=== PATIENT | female | born 1960 | race Caucasian/White ===

== ENCOUNTER 2018-11-06 12:42 | Emergency (ER) | payer OTHER, SELFPAY ==
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
--- NOTE | 2018-11-06 15:28 | RAD ---
LUMBAR SPINE TWO TO THREE VIEW SERIES: INDICATIONS: Low back pain. Injury. FINDINGS: There is mild rightward convexity curvature of the lumbar spine. Mild to moderate multilevel degener ative change is present. No evidence of compression fracture or significant subluxation. There is m ultilevel facet osteoarthritis. A metallic clip is seen at the medial right upper abdomen. IMPRESSION: 1. Mild right convexity curvature of the lumbar spine and mild to moderate multilevel degenerative c hange. 2. No acute compression fracture or subluxation. POS: [facility]
== END 2018-11-06 14:45 | disposition home or self-care (01) ==
LOC: SCSER 12:42
DX: S39.012A Strain of muscle, fascia and tendon of lower back, initial encounter (principal); S43.402A Unspecified sprain of left shoulder joint, initial encounter; E11.40 Type 2 diabetes mellitus with diabetic neuropathy, unspecified; I10 Essential (primary) hypertension; E78.5 Hyperlipidemia, unspecified; V43.52XA Car driver injured in collision with other type car in traffic accident, initial encounter
CPT/HCPCS: 72100

== ENCOUNTER 2022-01-08 13:31 | Outpatient (CLI) | payer BC ==
[2022-01-08 15:08] LABS: #Eosinphils 0.4 10x3/uL (0.0-0.5); #Monocytes 0.7 10x3/uL (0.0-1.1); %Basophils 0.4 % (0.0-2.0); %Eosinophils 4.1 % (0.0-6.0); %Lymphocytes 23.8 % (18.0-47.0); %Monocytes 7.2 % (0.0-10.0); %Neutrophils 64.1 % (40.0-75.0); Hemoglobin 10.8 g/dL (12.0-15.5); Mean Corpuscular HGB CONC 30.9 g/dL (32.0-36.0); Mean Corpuscular Hemoglobin 25.8 pg (27.0-33.0); Mean Corpuscular Volume 83.7 fl (81.6-98.3); Mean Platelet Volume 10.4 fl (7.4-10.4); Platelet Count 338 10x3/uL (150-450); Red Blood Cell (RBC) Count 4.18 10x6/uL (3.90-5.03); White Blood Cell (WBC) Count 9.3 10x3/uL (3.5-10.5)
[2022-01-08 15:15] LABS: INR-International Normal Ratio 0.9
[2022-01-08 15:23] LABS: Anion Gap 15 mmol/L (10-20); BUN (Urea Nitrogen) 39 mg/dL (9.8-20.1); Calc. Creatinine Clearance 0 mL/min (70-130); Calcium 9.5 mg/dL (7.8-10.44); Carbon Dioxide 29 mmol/L (23-31); Chloride 100 mmol/L (98-107); Glucose 221 mg/dL (80-115); Potassium 4.2 mmol/L (3.5-5.1); Sodium 140 mmol/L (136-145)
[2022-01-09 00:19] LABS: SARS-CoV-2 PCR by NAA Not Detected (NotDetected)
== END 2022-01-08 13:32 | disposition home or self-care (01) ==
LOC: LABBT 13:31
PROVIDERS: ATTEND Orthopaedic Surgery
DX: Z01.818 Encounter for other preprocedural examination (principal); M17.11 Unilateral primary osteoarthritis, right knee; Z20.822 Contact with and (suspected) exposure to COVID-19
CPT/HCPCS: 80048; 85025; 85610; 87081; 93005; 93010; U0003; U0005

== ENCOUNTER 2022-01-13 05:34 | Inpatient (IN) | payer BC ==
[2022-01-08 12:37] VITALS: BMI 35.2
[2022-01-13] MEDS ORDERED: Dexmedetomidine 200 MCG/2 ML VIAL ONE ×2 (05:59→07:53)
[2022-01-13] MEDS ORDERED: Tranexamic Acid 1,000 MG/10 ML VIAL ONE (06:08)
[2022-01-13] MEDS ORDERED: Sodium Chloride 0.9% 100 ML ONE (06:08)
[2022-01-13] MEDS ORDERED: Vancomycin HCl 1.5 GM in Sodium Chloride 0.9% 250 ML 300 ML IVPB SCH (06:15)
[2022-01-13] MEDS ORDERED: Fentanyl 100 MCG/2 ML VIAL ONE (06:38)
[2022-01-13] MEDS ORDERED: Bupivacaine PF 0.5% 30 ML VIAL ONE ×3 (06:38→06:44)
[2022-01-13] MEDS ORDERED: Midazolam HCl 2 mg/2 ml Vial ONE (06:38)
[2022-01-13] MEDS ORDERED: PROPOFOL 200 MG/20 ML VIAL ONE (06:40)
[2022-01-13] MEDS ORDERED: Ondansetron PF 4 MG/2 ML Vial ONE (06:40)
[2022-01-13] MEDS ORDERED: Dexamethasone 20 MG/5 ML VIAL ONE (06:40)
[2022-01-13] MEDS ORDERED: Lidocaine 1% PF 5 ML VIAL ONE (06:40)
[2022-01-13] MEDS ORDERED: ceFAZolin (BATCH) 2 GM/100 ML BAG ONE (06:51)
[2022-01-13] MEDS ORDERED: Acetaminophen 325 MG TAB PO PRN (07:09)
[2022-01-13] MEDS ORDERED: Zolpidem Tartrate 5 MG TAB PO PRN ×2 (07:09→08:00)
[2022-01-13] MEDS ORDERED: Promethazine HCl 25 MG/ML VIAL IM PRN ×3 (07:09→08:53)
[2022-01-13] MEDS ORDERED: HYDROcodone/Acetaminophen 10/325 mg Tablet PO PRN ×4 (07:09→08:00)
[2022-01-13] MEDS ORDERED: Ondansetron PF 4 MG/2 ML Vial IVP PRN ×2 (07:09→08:00)
[2022-01-13] MEDS ORDERED: diphenhydrAMINE 25 MG CAP PO PRN (07:09)
[2022-01-13] MEDS: Sodium Chloride 0.9% 1,000 ML IV SCH ×2 (07:15→19:46)
[2022-01-13] MEDS ORDERED: Albuterol 200 PUFF (6.7GM INHALER) INH PRN (07:20)
[2022-01-13] MEDS ORDERED: Fentanyl 100 MCG/2 ML VIAL SLOW IVP PRN (07:51)
[2022-01-13] MEDS: metFORMIN 500 MG TAB PO SCH ×2 (08:00→18:18)
[2022-01-13] MEDS ORDERED: Ropivacaine 0.2% 550 ML 550 ML NERVE BLCK SCH (08:00)
[2022-01-13] MEDS ORDERED: traMADol HCl 50 MG TAB PO PRN ×2 (08:00)
[2022-01-13] MEDS ORDERED: Ondansetron HCl/PF 4 MG/2 ML Vial IVP PRN (08:53)
[2022-01-13] MEDS ORDERED: Promethazine HCl 25 MG/ML VIAL IVPB PRN (08:53)
[2022-01-13] MEDS ORDERED: Fentanyl 250 MCG/5 ML VIAL ONE (08:59)
[2022-01-13] MEDS ORDERED: Aspirin 81 mg Enteric Coated Tablet PO SCH (09:00)
[2022-01-13] MEDS ORDERED: Dextrose 5% in Water 1,000 ML IV PRN (13:12)
[2022-01-13] MEDS ORDERED: Dextrose 50% Abboject 50 ML SYRINGE SLOW IVP PRN (13:12)
[2022-01-13] MEDS ORDERED: HumaLOG 300 UNITS/3 ML VIAL SC PRN (13:12)
[2022-01-13] MEDS ORDERED: Ketorolac Tromethamine 30 MG/ML VIAL IM SCH (14:00)
[2022-01-13] MEDS: Ketorolac Tromethamine 30 MG/ML VIAL IVP SCH ×3 (15:07→23:46)
[2022-01-13] MEDS: ceFAZolin (BATCH) 2 GM in Premix Bag 1 BAG IVPB SCH ×2 (15:29→23:47)
[2022-01-13] MEDS: Hydrochlorothiazide 25 MG TAB PO SCH ×2 (15:32→20:41)
[2022-01-13] MEDS: Furosemide 20 MG TAB PO SCH (15:33)
[2022-01-13] MEDS: Aspirin 81 mg Enteric Coated Tablet PO SCH ×3 (15:33→21:13)
[2022-01-13] MEDS: Gabapentin 400 MG CAP PO SCH ×2 (15:34→20:42)
[2022-01-13] MEDS: Lisinopril 20 MG TAB PO SCH (15:34)
[2022-01-13] MEDS: HumaLOG 300 UNITS/3 ML VIAL SC PRN (18:19)
[2022-01-13] MEDS: Simvastatin 10 MG TAB PO SCH (20:42)
[2022-01-14] MEDS: Sodium Chloride 0.9% 1,000 ML IV SCH ×2 (02:40→21:18)
[2022-01-14] MEDS: HumaLOG 300 UNITS/3 ML VIAL SC PRN ×2 (05:54→18:02)
[2022-01-14] MEDS: Ketorolac Tromethamine 30 MG/ML VIAL IVP SCH ×4 (05:54→23:13)
[2022-01-14 07:09] LABS: Mean Corpuscular HGB CONC 32.5 g/dL (32.0-36.0); Mean Corpuscular Hemoglobin 27.7 pg (27.0-31.0); Mean Corpuscular Volume 85.3 fL (78.0-98.0); Mean Platelet Volume 7.2 fL (7.4-10.4); Platelet Count 268 thou/uL (130-400); RBC Distribution Width 12.8 % (11.5-14.5); Red Blood Cell (RBC) Count 3.59 mill/uL (4.20-5.40); White Blood Cell (WBC) Count 14.2 thou/uL (4.8-10.8)
[2022-01-14] MEDS: metFORMIN 500 MG TAB PO SCH ×2 (08:03→17:48)
[2022-01-14] MEDS: Furosemide 20 MG TAB PO SCH (08:03)
[2022-01-14] MEDS: Multivitamin W/ Minerals 1 TAB PO SCH (08:03)
[2022-01-14] MEDS: Aspirin 81 mg Enteric Coated Tablet PO SCH (08:03)
[2022-01-14] MEDS: Ferrous Gluconate 324 MG TAB PO SCH ×2 (08:04→17:48)
[2022-01-14] MEDS: Gabapentin 400 MG CAP PO SCH ×2 (08:04→21:13)
[2022-01-14] MEDS: Lisinopril 20 MG TAB PO SCH (08:05)
[2022-01-14] MEDS: Hydrochlorothiazide 25 MG TAB PO SCH ×2 (08:05→21:13)
[2022-01-14] MEDS: Senokot S 8.6-50 MG TAB PO SCH ×2 (09:31→21:13)
[2022-01-14 12:48] LABS: Hemoglobin A1c 8.9 % (4.0-6.0)
[2022-01-14] MEDS: Simvastatin 10 MG TAB PO SCH (21:14)
[2022-01-15] MEDS: Sodium Chloride 0.9% 1,000 ML IV SCH ×2 (04:56→10:51)
[2022-01-15 06:04] LABS: Hemoglobin 9.2 g/dL (12.0-16.0); Mean Corpuscular HGB CONC 32.1 g/dL (32.0-36.0); Mean Corpuscular Hemoglobin 27.1 pg (27.0-31.0); Mean Corpuscular Volume 84.3 fL (78.0-98.0); Mean Platelet Volume 7.5 fL (7.4-10.4); Platelet Count 231 thou/uL (130-400); RBC Distribution Width 13.1 % (11.5-14.5); White Blood Cell (WBC) Count 7.7 thou/uL (4.8-10.8)
[2022-01-15] MEDS: Ketorolac Tromethamine 30 MG/ML VIAL IVP SCH (06:04)
[2022-01-15 08:34] VITALS: BP 112/62; TEMP 98.3
[2022-01-15] MEDS: metFORMIN 500 MG TAB PO SCH (08:43)
[2022-01-15] MEDS: Gabapentin 400 MG CAP PO SCH (08:43)
[2022-01-15] MEDS: Multivitamin W/ Minerals 1 TAB PO SCH (08:44)
[2022-01-15] MEDS: Senokot S 8.6-50 MG TAB PO SCH (08:44)
[2022-01-15] MEDS: Aspirin 81 mg Enteric Coated Tablet PO SCH (08:44)
[2022-01-15] MEDS: Ferrous Gluconate 324 MG TAB PO SCH (08:44)
== END 2022-01-15 10:54 | disposition home or self-care (01) | DRG 470 ==
LOC: SDC 05:34 → SJJU 10:59 → OBSVTOIN 01-15 08:48
PROVIDERS: ADMIT Orthopaedic Surgery; ATTEND Orthopaedic Surgery
PROC: 0SRC0J9 Replacement of Right Knee Joint with Synthetic Substitute, Cemented, Open Approach (ICD-10-PCS; principal; 2022-01-13)
DX: M17.11 Unilateral primary osteoarthritis, right knee (principal); I10 Essential (primary) hypertension; E78.5 Hyperlipidemia, unspecified; E11.40 Type 2 diabetes mellitus with diabetic neuropathy, unspecified; K21.9 Gastro-esophageal reflux disease without esophagitis; J45.909 Unspecified asthma, uncomplicated; Z88.5 Allergy status to narcotic agent; Z88.2 Allergy status to sulfonamides; Z79.51 Long term (current) use of inhaled steroids; Z79.82 Long term (current) use of aspirin; Z79.899 Other long term (current) drug therapy; Z98.890 Other specified postprocedural states; Z90.710 Acquired absence of both cervix and uterus; Z90.49 Acquired absence of other specified parts of digestive tract
CPT/HCPCS: 36415; 36416; 83036; 85027; 96365; 96375; 96376; A4306; C1713; C1776; G0378; J0690; J1815; J1885; J2250; J2795; J3010; J3370; J3490; J7050; S0020

== ENCOUNTER 2022-11-17 22:30 | Emergency (ER) | payer BC ==
[~2022-11-17 22:30] MED LIST: Iopamidol-370 76% 500 ML 1 ML ONE
[2022-11-17] MEDS ORDERED: Acetaminophen 500 MG TAB ONE (23:29)
[2022-11-17] MEDS ORDERED: Lidocaine 5% Patch TD SCH (23:30)
[2022-11-17] MEDS ORDERED: Lidocaine 4% Patch TD SCH (23:30)
[2022-11-18] MEDS ORDERED: Fentanyl 100 MCG/2 ML VIAL ONE (00:27)
[2022-11-18 00:46] LABS: #Eosinphils 0.3 thou/uL (0.0-0.7); #Lymphocytes 3.5 thou/uL (1.20-3.40); #Monocytes 0.8 thou/uL (0.11-0.59); #Neutrophils 8.7 thou/uL (1.40-6.50); %Basophils 0.4 % (0.0-1.0); %Eosinophils 2.2 % (0.0-10.0); %Lymphocytes 25.9 % (21.0-51.0); %Monocytes 6.2 % (0.0-10.0); %Neutrophils 65.3 % (42.0-75.0); Hemoglobin 11.5 g/dL (12.0-16.0); Mean Corpuscular HGB CONC 32.8 g/dL (32.0-36.0); Mean Corpuscular Hemoglobin 27.3 pg (27.0-31.0); Mean Corpuscular Volume 83.2 fl (78.0-98.0); Platelet Count 277 10x3/uL (130-400); RBC Distribution Width 13.3 % (11.5-14.5); Red Blood Cell (RBC) Count 4.23 mill/uL (4.20-5.40); White Blood Cell (WBC) Count 13.3 10x3/uL (4.8-10.8)
[2022-11-18 01:10] LABS: ALT (SGPT) 14 U/L (8-55); AST (SGOT) 16 U/L (5-34); Albumin 4.4 g/dL (3.4-4.8); Alkaline Phosphatase 102 U/L (40-110); Anion Gap 20 mmol/L (10-20); BUN (Urea Nitrogen) 46 mg/dL (9.8-20.1); Bilirubin, Total 0.5 mg/dL (0.2-1.2); Calc. Creatinine Clearance 0 mL/min (70-130); Calcium 10.2 mg/dL (7.8-10.44); Carbon Dioxide 24 mmol/L (23-31); Chloride 102 mmol/L (98-107); Estimated GFR 24; Globulin 3.2 g/dL (2.4-3.5); Glucose 100 mg/dL (80-115); Potassium 4.7 mmol/L (3.5-5.1); Protein, Total 7.6 g/dL (5.8-8.1); Sodium 141 mmol/L (136-145)
== END 2022-11-18 04:10 | disposition home or self-care (01) ==
LOC: EDBD 22:30 → ERS 22:30
DX: R10.12 Left upper quadrant pain (principal); K59.00 Constipation, unspecified; I10 Essential (primary) hypertension; E11.40 Type 2 diabetes mellitus with diabetic neuropathy, unspecified; E78.00 Pure hypercholesterolemia, unspecified; W17.89XA Other fall from one level to another, initial encounter; Y92.481 Parking lot as the place of occurrence of the external cause; Z79.82 Long term (current) use of aspirin; Z79.84 Long term (current) use of oral hypoglycemic drugs; Z79.899 Other long term (current) drug therapy
CPT/HCPCS: 71275; 74177; 80053; 83690; 84484; 85025; 93005; 96374; J3010; Q9967

== ENCOUNTER 2023-04-22 11:03 | Outpatient (CLI) | payer BC | END 2023-04-22 11:04 | disposition home or self-care (01) | LOC: RAD 11:03 | PROVIDERS: ATTEND Family Medicine | DX: M79.671 Pain in right foot (principal); M19.071 Primary osteoarthritis, right ankle and foot; M25.774 Osteophyte, right foot; M77.51 Other enthesopathy of right foot and ankle ==

== ENCOUNTER 2023-09-14 10:38 | Observation (INO) | payer BC ==
[2023-09-14] MEDS ORDERED: Metoclopramide HCl 10 MG (2 mL) VIAL ONE (13:13)
[2023-09-14] MEDS ORDERED: diphenhydrAMINE 50 MG/ML VIAL ONE (13:13)
[2023-09-14 13:38] LABS: #Basophils 0.1 thou/uL (0.0-0.2); #Eosinphils 0.2 thou/uL (0.0-0.7); #Monocytes 0.7 thou/uL (0.11-0.59); #Neutrophils 5.2 thou/uL (1.40-6.50); %Basophils 0.6 % (0.0-1.0); %Eosinophils 2.4 % (0.0-10.0); %Lymphocytes 23.4 % (21.0-51.0); %Monocytes 8.3 % (0.0-10.0); %Neutrophils 65.1 % (42.0-75.0); Hematocrit 41.1 % (36.0-47.0); Hemoglobin 12.2 g/dL (12.0-16.0); Mean Corpuscular HGB CONC 29.7 g/dL (32.0-36.0); Mean Corpuscular Hemoglobin 24.4 pg (27.0-31.0); Mean Corpuscular Volume 82.2 fl (78.0-98.0); Mean Platelet Volume 9.7 fL (7.4-10.4); Platelet Count 292 10x3/uL (130-400); RBC Distribution Width 17.2 % (11.5-14.5)
[2023-09-14 14:06] LABS: ALT (SGPT) 15 U/L (8-55); AST (SGOT) 17 U/L (5-34); Albumin 3.9 g/dL (3.4-4.8); Alkaline Phosphatase 101 U/L (40-110); Anion Gap 17 mmol/L (10-20); BUN (Urea Nitrogen) 11 mg/dL (9.8-20.1); Bilirubin, Total 1.3 mg/dL (0.2-1.2); CRP (Inflammatory) 0.51 mg/dL (= or < 0.5); Calc. Creatinine Clearance 0 mL/min (70-130); Calcium 9.8 mg/dL (7.8-10.44); Carbon Dioxide 22 mmol/L (23-31); Chloride 108 mmol/L (98-107); Estimated GFR 70; Globulin 3.1 g/dL (2.4-3.5); Glucose 156 mg/dL (80-115); Potassium 5.1 mmol/L (3.5-5.1); Sodium 142 mmol/L (136-145)
[2023-09-14] MEDS ORDERED: Aspirin Chewable 81 MG TAB ONE (14:52)
[2023-09-14] MEDS ORDERED: HYDROcodone/Acetaminophen 10/325 mg Tablet PO PRN (15:32)
[2023-09-14] MEDS ORDERED: Albuterol 200 PUFF (6.7GM INHALER) INH PRN (15:32)
[2023-09-14] MEDS ORDERED: hydrALAZINE 20 MG/ML VIAL SLOW IVP PRN (15:36)
[2023-09-14] MEDS ORDERED: HumaLOG 300 UNITS/3 ML VIAL SC PRN ×2 (15:36)
[2023-09-14] MEDS ORDERED: Dextrose 5% in Water 1,000 ML IV PRN (15:36)
[2023-09-14] MEDS ORDERED: Glucagon 1 MG/ML KIT IM PRN (15:36)
[2023-09-14] MEDS ORDERED: Dextrose 50% Abboject 50 ML SYRINGE SLOW IVP PRN (15:36)
[2023-09-14 16:24] LABS: Troponin I Less than 0.010 ng/mL (< 0.028)
[2023-09-14] MEDS: metFORMIN 500 MG TAB PO SCH (18:19)
[2023-09-14 18:37] VITALS: BMI 28.5
[2023-09-14] MEDS: Heparin 5,000 UNITS/ML VIAL SC SCH (21:13)
[2023-09-14] MEDS: Gabapentin 400 MG CAP PO SCH (21:13)
[2023-09-14] MEDS: Simvastatin 10 MG TAB PO SCH (21:13)
[2023-09-15 05:35] LABS: #Eosinphils 0.3 thou/uL (0.0-0.7); #Monocytes 0.7 thou/uL (0.11-0.59); #Neutrophils 4.1 thou/uL (1.40-6.50); %Basophils 0.3 % (0.0-1.0); %Eosinophils 3.4 % (0.0-10.0); %Lymphocytes 31.4 % (21.0-51.0); %Monocytes 8.9 % (0.0-10.0); %Neutrophils 55.9 % (42.0-75.0); Hematocrit 37.7 % (36.0-47.0); Hemoglobin 11.1 g/dL (12.0-16.0); Mean Corpuscular HGB CONC 29.4 g/dL (32.0-36.0); Mean Corpuscular Hemoglobin 24.6 pg (27.0-31.0); Mean Corpuscular Volume 83.6 fl (78.0-98.0); Mean Platelet Volume 10.1 fL (7.4-10.4); Platelet Count 275 10x3/uL (130-400); Red Blood Cell (RBC) Count 4.51 mill/uL (4.20-5.40); White Blood Cell (WBC) Count 7.3 10x3/uL (4.8-10.8)
[2023-09-15 05:56] LABS: Anion Gap 13 mmol/L (10-20); BUN (Urea Nitrogen) 11 mg/dL (9.8-20.1); Calc. Creatinine Clearance 79 mL/min (70-130); Carbon Dioxide 25 mmol/L (23-31); Chloride 106 mmol/L (98-107); Cholesterol 159 mg/dl (< 200 Desired); Estimated GFR 74; Glucose 132 mg/dL (80-115); HDL Cholesterol 40 mg/dL (>60 Neg Risk); LDL Cholesterol, Calculated 82 mg/dL; Potassium 4.1 mmol/L (3.5-5.1); Sodium 140 mmol/L (136-145); Triglycerides 183 mg/dL (Less than 150)
[2023-09-15] MEDS ORDERED: Aspirin 81 mg Enteric Coated Tablet PO SCH (09:00)
[2023-09-15] MEDS ORDERED: Furosemide 20 MG TAB PO SCH (09:00)
[2023-09-15] MEDS: Lisinopril 20 MG TAB PO SCH (09:57)
[2023-09-15] MEDS: metFORMIN 500 MG TAB PO SCH ×2 (09:57→18:16)
[2023-09-15] MEDS: Heparin 5,000 UNITS/ML VIAL SC SCH ×2 (09:57→20:29)
[2023-09-15] MEDS: Gabapentin 400 MG CAP PO SCH ×2 (09:57→20:30)
[2023-09-15] MEDS ORDERED: Magnevist 469MG/ML 20 ML VIAL ONE (10:02)
[2023-09-15] MEDS ORDERED: SALMETEROL XINAFOATE 50 MCG PO PRN (12:21)
[2023-09-15] MEDS: Simvastatin 10 MG TAB PO SCH (20:29)
[2023-09-15] MEDS: Fluticasone Propionate Nasal Spray 16 gm Bottle NASAL SCH (20:30)
[2023-09-15] MEDS: Azelastine 137 MCG/NASAL Spray 30 ML NS SCH (21:06)
[2023-09-16] MEDS: Azelastine 137 MCG/NASAL Spray 30 ML NS SCH (08:39)
[2023-09-16] MEDS: Gabapentin 400 MG CAP PO SCH (08:41)
[2023-09-16] MEDS: metFORMIN 500 MG TAB PO SCH (08:42)
[2023-09-16] MEDS: Lisinopril 20 MG TAB PO SCH (08:42)
[2023-09-16] MEDS: Heparin 5,000 UNITS/ML VIAL SC SCH (08:43)
[2023-09-16] MEDS: Fluticasone Propionate Nasal Spray 16 gm Bottle NASAL SCH (08:45)
[2023-09-16] MEDS ORDERED: Aspirin 81 mg Enteric Coated Tablet PO SCH (09:00)
[2023-09-16] MEDS ORDERED: Empagliflozin 25 MG TAB PO SCH (09:00)
[2023-09-16] MEDS ORDERED: Cholecalciferol 1,000 UNITS (25 MCG) TAB PO SCH (09:00)
[2023-09-16] MEDS ORDERED: RIZATRIPTAN BENZOATE 5 MG PO SCH (09:00)
[2023-09-16 11:51] VITALS: TEMP 97.6
[2023-09-16 12:07] VITALS: BP 121/79
[2023-09-18] MEDS ORDERED: FLU VACC QS2023-24(6MOS UP)/PF 60 MCG/0.5 ML SYRINGE IM ONE (09:00)
== END 2023-09-16 15:01 | disposition home or self-care (01) ==
LOC: ERS 10:38 → 2SE 15:29 → MSONC 09-15 18:46
PROVIDERS: ADMIT Hospitalist; ATTEND Hospitalist
PROC: B24BZZZ Ultrasonography of Heart with Aorta (ICD-10-PCS; principal; 2023-09-16)
DX: R29.6 Repeated falls (principal); I10 Essential (primary) hypertension; E11.40 Type 2 diabetes mellitus with diabetic neuropathy, unspecified; E78.5 Hyperlipidemia, unspecified; R42 Dizziness and giddiness; K21.9 Gastro-esophageal reflux disease without esophagitis; J32.9 Chronic sinusitis, unspecified; J45.909 Unspecified asthma, uncomplicated; I95.1 Orthostatic hypotension; Z88.5 Allergy status to narcotic agent; Z88.2 Allergy status to sulfonamides; Z90.710 Acquired absence of both cervix and uterus; Z90.49 Acquired absence of other specified parts of digestive tract; Z98.890 Other specified postprocedural states; Z79.82 Long term (current) use of aspirin; Z79.84 Long term (current) use of oral hypoglycemic drugs; Z79.899 Other long term (current) drug therapy
CPT/HCPCS: 36415; 36416; 70450; 70551; 70552; 80048; 80053; 80061; 83605; 84484; 85025; 86140; 93005; 93306; 93880; 96365; 96372; 96375; A9579; G0378; J1200; J1644; J1815; J2765

== ENCOUNTER 2024-06-27 09:41 | Day surgery (SDC) | payer BC ==
[2024-06-20 08:39] VITALS: BMI 33.2
[2024-06-27] MEDS ORDERED: Sodium Chloride 0.9% 100 ML ONE (11:57)
[2024-06-27] MEDS ORDERED: CEFAZOLIN 2 GM VIAL ONE (11:57)
[2024-06-27] MEDS ORDERED: Lidocaine 1% PF 5 ML VIAL ONE (14:16)
[2024-06-27] MEDS ORDERED: PROPOFOL 20 ML ONE (14:16)
[2024-06-27] MEDS ORDERED: fentaNYL 50 mcg/mL 1 mL Vial ONE ×2 (14:16→15:07)
[2024-06-27] MEDS ORDERED: Ondansetron PF 4 MG/2 ML Vial ONE (14:16)
[2024-06-27] MEDS ORDERED: Ketorolac Tromethamine 30 MG (1 mL) VIAL ONE (15:07)
== END 2024-06-27 16:25 | disposition home or self-care (01) ==
LOC: SDC 09:41
PROVIDERS: ATTEND Orthopaedic Surgery Hand Surgery
PROC: 0LN70ZZ Release Right Hand Tendon, Open Approach (ICD-10-PCS; principal; 2024-06-27)
DX: M65.341 Trigger finger, right ring finger (principal); M65.331 Trigger finger, right middle finger; E11.9 Type 2 diabetes mellitus without complications; J45.909 Unspecified asthma, uncomplicated; I10 Essential (primary) hypertension; E78.00 Pure hypercholesterolemia, unspecified; Z88.2 Allergy status to sulfonamides; Z79.899 Other long term (current) drug therapy; Z88.5 Allergy status to narcotic agent; Z79.84 Long term (current) use of oral hypoglycemic drugs
CPT/HCPCS: A6223; J1885; J2405; J2704; J3010